=== PATIENT | female | born 1970 | race Caucasian/White ===

== ENCOUNTER 2020-01-18 00:12 | Outpatient (CLI) | payer OTHER, SELFPAY ==
[2020-01-18 17:26] LABS: SARS-CoV-2 RNA PCR Negative
== END 2020-01-18 00:13 | disposition home or self-care (01) ==
LOC: ANHCOVIDDT 00:12
PROVIDERS: Visit Provider Internal Medicine Gastroenterology
DX: Z01.818 Encounter for other preprocedural examination (principal); Z11.59 Encounter for screening for other viral diseases
CPT/HCPCS: 87635; C9803; U0003

== ENCOUNTER 2020-01-21 00:12 | Day surgery (SDC) | payer OTHER, SELFPAY ==
[2020-01-10 13:38] VITALS: BMI 28.3
[2020-01-21 06:50] VITALS: BP 125/76; PULSE 86; RESP 16; TEMP 36.4; O2SAT 98
[2020-01-21] MEDS: LACTATED RINGERS 1,000 ML 150 ML IV CONT (06:51)
--- NOTE | 2020-01-21 07:18 | PM.HPGS ---
History of Present Illness History of Present Illness Consent: Risks, benefits, and alternatives have been discussed and questions answered. Patient agrees to proceed with procedure. Chief complaint: Neoplasm Screening Narrative: Cely Corbin is a 50 year old W female who presents for her 1st screening colonoscopy. Patient is asymptomatic. Her father has a history of polyps. Patient is on no anticoagulation. [facility] Surgical History Surgical History (Updated 01/21/20 @ 07:21 by Grant Ortiz MD) History of bladder suspension procedure Status post section Status post tonsillectomy and adenoidectomy Status post total abdominal hysterectomy and bilateral salpingo-oophorectomy ([facility]-BSO) Meds Home Medications and Allergies Home Medications Medication Instructions Recorded Confirmed Type conjugated estrogens [Premarin] VAGINAL DAILY 01/10/20 History fluticasone propionate 1 spray INTRANASAL DAILY 01/10/20 01/10/20 History levothyroxine [Synthroid] 12.5 mcg PO DAILY 01/10/20 01/10/20 History levothyroxine [Synthroid] 150 mcg PO DAILY 01/10/20 01/10/20 History lifitegrast [Xiidra] 1 drp DAILY 01/10/20 01/10/20 History loratadine 10 mg PO DAILY 01/10/20 01/10/20 History kostahkcf-mqvym-qcs 1 tablet PO DAILY 01/10/20 01/10/20 History [Uribel] sertraline 25 mg PO DAILY 01/10/20 01/10/20 History chlorthalidone 25 mg PO DAILY 01/21/20 01/21/20 History Allergies Allergy/AdvReac Type Severity Reaction Status Date / Time quinine Allergy Intermediate Swelling Verified 01/21/20 06:47 simvastatin [From Zocor] AdvReac Mild Diarrhea Verified 01/21/20 06:47 Vital Signs Vital Signs - 24 hr 01/21/20 06:50 Temperature 36.4 C L Pulse Rate 86 Respiratory Rate 16 Blood Pressure 125/76 Pulse Oximetry 98 Exam Const: Orientation/consciousness: patient oriented x3 Resp: Auscultation: clear to auscultation bilaterally Cardio: Rate: regular rate Rhythm: regular rhythm Heart sounds: no murmurs GI: GI Palp: Yes Soft to palpation, No Tenderness to palpation present (GI), Yes No hepatosplenomegaly present and No Palpable mass present Auscultation: normal bowel sounds Neuro: General: patient oriented x3 and no focal motor deficits Extrem: General: no pedal edema Assessment and Plan Additional Plan 1st screening colonoscopy secondary family history of colon polyps in father
--- NOTE | 2020-01-21 07:28 | WPDANESEPPF ---
Anes - Initial Pre Proc Eval Procedure: Operation Date: 01/21/20 08:00 Proposed Procedures p Screening Colonoscopy - Grant Ortiz MD Date/Time: 01/21/20 07:28 Surgeon: Grant Ortiz MD Pre Op Diagnosis: Neoplasm Screening Patient Data Age: 50 Gender: F Height: 5 ft 5 in Weight: 78.1 kg Last Vital Signs Temp 97.5 F L 01/21/20 06:50 Pulse 86 01/21/20 06:50 Resp 16 01/21/20 06:50 BP 125/76 01/21/20 06:50 Pulse Ox 98 01/21/20 06:50 Allergies Allergy/AdvReac Type Severity Reaction Status Date / Time quinine Allergy Intermediate Swelling Verified 01/21/20 06:47 simvastatin [From Zocor] AdvReac Mild Diarrhea Verified 01/21/20 06:47 Home Medications Medication Instructions Recorded Confirmed Type conjugated estrogens [Premarin] VAGINAL DAILY 01/10/20 History fluticasone propionate 1 spray INTRANASAL DAILY 01/10/20 01/10/20 History levothyroxine [Synthroid] 12.5 mcg PO DAILY 01/10/20 01/10/20 History levothyroxine [Synthroid] 150 mcg PO DAILY 01/10/20 01/10/20 History lifitegrast [Xiidra] 1 drp DAILY 01/10/20 01/10/20 History loratadine 10 mg PO DAILY 01/10/20 01/10/20 History methen-sara-sSonjahzsy-seseg-zer 1 tablet PO DAILY 01/10/20 01/10/20 History [Uribel] sertraline 25 mg PO DAILY 01/10/20 01/10/20 History chlorthalidone 25 mg PO DAILY 01/21/20 01/21/20 History Patient hx anesthesia problems: none Family hx anesthesia problems: none PMFSH Past Medical History Medical History (Updated 01/21/20 @ 07:28 by Johnny Colby MD) Anxiety Arthritis Hypertension Surgical History Surgical History (Updated 01/21/20 @ 07:21 by Grant Ortiz MD) History of bladder suspension procedure Status post section Status post tonsillectomy and adenoidectomy Status post total abdominal hysterectomy and bilateral salpingo-oophorectomy ([facility]-BSO) Anes - Eval Final PreProcedure Day of Procedure 01/21/20 07:28 Patient weight: normal Heart: regular rate and rhythm Lungs: clear to auscultation Airway: Mallampati scale class II Neurological: alert and oriented Last oral intake: >/= 8 hours ASA classification: II Emergent: no Anesthetic plan: proceed Anesthesia type and monitoring: general GIVS and standard monitoring Informed Consent: The patient's anesthetic plan and its attendant risks and benefits were discussed with the patient/family/POA. Questions were solicited and answers provided to the satisfaction of the patient/family/POA.
[2020-01-21 08:38] VITALS: BP 103/66; PULSE 71; RESP 17; O2SAT 99
[2020-01-21 08:48] VITALS: BP 106/70; PULSE 60; RESP 17; O2SAT 100
[2020-01-21 08:58] VITALS: BP 117/76; PULSE 63; RESP 20; O2SAT 100
== END 2020-01-21 09:09 | disposition home or self-care (01) ==
PROVIDERS: Visit Provider Internal Medicine Gastroenterology
PROC: 0DJD8ZZ Inspection of Lower Intestinal Tract, Via Natural or Artificial Opening Endoscopic (ICD-10-PCS; CPT 45378; principal; 2020-01-21 08:00)
DX: Z12.11 Encounter for screening for malignant neoplasm of colon (principal); I10 Essential (primary) hypertension; F41.9 Anxiety disorder, unspecified
CPT/HCPCS: 45378; J2001; J2704; J7120

== ENCOUNTER 2020-01-31 14:29 | Outpatient (CLI) | payer OTHER, SELFPAY ==
--- NOTE | ~2020-01-31 | MM_ITS ---
EXAMINATION: MM screening viv BI w gillian HISTORY: Screening mammogram TECHNIQUE: Craniocaudal and mediolateral oblique 3-D tomosynthesis images were obtained and synthetic 2-D images were generated. CAD analysis was submitted and interpreted. COMPARISON: No prior mammogram is available for comparison at this institution. BREAST PARENCHYMAL COMPOSITION: There are scattered areas of fibroglandular density. FINDINGS: There is no evidence of suspicious mass, calcification, or architectural distortion to sugg est malignancy in either breast. There has been no suspicious interval change. IMPRESSION: 1. No mammographic evidence of malignancy. 2. Recommend routine screening mammography in one year. BI-RADS Category 1: Negative Reviewed, dictated and finalized at location A.
== END 2020-01-31 14:30 | disposition home or self-care (01) ==
DX: Z12.31 Encounter for screening mammogram for malignant neoplasm of breast (principal)
CPT/HCPCS: 77063; 77067

== ENCOUNTER 2020-07-15 18:58 | Emergency (ER) | payer OTHER, SELFPAY ==
[2020-07-15 19:06] VITALS: BP 160/82; PULSE 102; RESP 18; TEMP 37; O2SAT 100
--- NOTE | 2020-07-15 19:16 | ED.GENADULT ---
HPI - General Adult General Chief complaint: Animal Bite Stated complaint: animal bite Source: patient Mode of arrival: ambulatory Limitations: no limitations History of Present Illness HPI narrative: Patient presents for evaluation of dog bite to left arm. She indicates she has two dogs at home. This evening, just prior to arrival, her dogs got physically aggressive with one another. She attempted to intervene and one of the dogs bit her left forearm. Both dogs are up-to-date on vaccinations. Patient is unsure of the date of her last tetanus. She is not diabetic. She is right-hand dominant. She reports moderate pain in the affected area without descriptive quality or numerical rating. No additional complaints or concerns. Related Data Home Medications Medication Instructions Recorded Confirmed Premarin VAGINAL DAILY 01/10/20 Uribel 1 tablet PO DAILY 01/10/20 01/10/20 Xiidra 1 drp DAILY 01/10/20 07/15/20 fluticasone propionate 1 spray INTRANASAL DAILY 01/10/20 07/15/20 levothyroxine [Synthroid] 12.5 mcg PO DAILY 01/10/20 01/10/20 levothyroxine [Synthroid] 150 mcg PO DAILY 01/10/20 01/10/20 loratadine 10 mg PO DAILY 01/10/20 07/15/20 sertraline 25 mg PO DAILY 01/10/20 07/15/20 chlorthalidone 25 mg PO DAILY 01/21/20 07/15/20 Allergies Allergy/AdvReac Type Severity Reaction Status Date / Time quinine Allergy Intermediate Swelling Verified 07/15/20 19:12 simvastatin [From Zocor] AdvReac Mild Diarrhea Verified 07/15/20 19:12 Review of Systems Review of Systems: Narrative: CONSTITUTIONAL: Denies fever, chills, or sweats. EYES: Denies visual changes, redness, or discharge. ENT: Denies rhinorrhea, congestion, sore throat, or otalgia. CARDIOVASCULAR: Denies chest pain, palpitations, or edema. RESPIRATORY: Denies cough or dyspnea. GASTROINTESTINAL: Denies abdominal pain, nausea, vomiting, or diarrhea. GENITOURINARY: Denies dysuria or hematuria. SKIN: Denies rash or itching. Reports dog bite to the left arm MUSCULOSKELETAL: Denies back pain, joint pain. Reports pain in the left forearm NEUROLOGIC: Denies headache, numbness, dizziness, or weakness. PSYCHIATRIC: Denies anxiety or depression. [facility] Past Medical History Medical History Anxiety Arthritis Hypertension Thyroid disease Surgical History Surgical History History of bladder suspension procedure Status post section Status post tonsillectomy and adenoidectomy Status post total abdominal hysterectomy and bilateral salpingo-oophorectomy ([facility]-BSO) Family History Family History Father Coronary artery disease Mother Coronary artery disease Social History Social History (Updated 07/15/20 @ 19:20 by ESTELA Burgess, ) Smoking status: Never smoker Substance use: never Living arrangements: with family Gender identity (if verbalized by the patient): Female Sexual Orientation (if Verbalized by the Patient): Straight or Heterosexual Exam Narrative: Exam Narrative: GENERAL: Well-appearing, well-nourished, and in no acute distress. HEAD: Normocephalic, atraumatic. EYES: PERRLA and EOMI. ENT: Nares clear, no rhinorrhea or epistaxis. Mucous membranes moist. Oropharynx without tonsillar hypertrophy exudate or other lesions. Bilateral TMs [place] nonbulging NECK: Supple. No adenopathy or masses. No carotid bruits or JVD CHEST: Clear to auscultation. No respiratory distress. No wheezes rales or rhonchi HEART: Regular rate and rhythm. No murmur heard. Normal peripheral pulses. ABDOMEN: Soft, nontender, nondistended, normal active bowel sounds. EXTREMITIES: Normal range of motion. No edema. SKIN: Warm, dry, no rash. (2) puncture [place] at approximately 3 mm in size to the left forearm with dried sanguinous drainage noted NEURO: No focal deficits. Alert an
[2020-07-15] MEDS: TETANUS,DIPHTHERIA,AC PERTUSSIS ADULT (0.5 ML) BOOSTRIX IM (19:21)
== END 2020-07-15 19:32 | disposition home or self-care (01) ==
PROVIDERS: Emergency Provider Nurse Practitioner
DX: S51.832A Puncture wound without foreign body of left forearm, initial encounter (principal); W54.0XXA Bitten by dog, initial encounter; Z23 Encounter for immunization; F41.9 Anxiety disorder, unspecified; M19.90 Unspecified osteoarthritis, unspecified site; I10 Essential (primary) hypertension; E06.3 Autoimmune thyroiditis; E03.9 Hypothyroidism, unspecified
CPT/HCPCS: 90471; 90715; 99213; G0463

== ENCOUNTER 2020-09-29 13:44 | Outpatient (CLI) | payer OTHER, SELFPAY ==
--- NOTE | ~2020-09-29 | MM_ITS ---
EXAMINATION: MM diagnostic viv RT w gillian HISTORY: Deep breast pain TECHNIQUE: ML, MLO and craniocaudal 3-D tomosynthesis images of right breast were performed and synth etic 2-D images were generated. CAD analysis was submitted and interpreted. COMPARISON: 01/31/2020 bilateral digital screening mammogram BREAST PARENCHYMAL COMPOSITION: There are scattered areas of fibroglandular density. FINDINGS: No suspicious mass or architectural distortion, malignant calcification, skin thickening or retraction or significant new or developing density is detected. IMPRESSION: 1. No mammographic evidence of malignancy 2. Routine annual mammographic screening is recommended. BI-RADS Category 1: Negative Reviewed, dictated and finalized at location A. [place] [employer]
== END 2020-09-29 13:45 | disposition home or self-care (01) ==
LOC: ANHIMG 13:48
DX: N64.4 Mastodynia (principal)
CPT/HCPCS: 77061; 77065; G0279

== ENCOUNTER 2021-02-02 14:09 | Outpatient (CLI) | payer OTHER, SELFPAY ==
--- NOTE | ~2021-02-02 | MM_ITS ---
EXAMINATION: MM screening [facility] BI w gillian HISTORY: Screening mammogram TECHNIQUE: Craniocaudal and mediolateral oblique 3-D tomosynthesis images were obtained and synthetic 2-D images were generated. CAD analysis was submitted and interpreted. COMPARISON: 09/29/2020, 01/31/2020 BREAST PARENCHYMAL COMPOSITION: There are scattered areas of fibroglandular density. FINDINGS: There is no evidence of suspicious mass, calcification, or architectural distortion to sugg est malignancy in either breast. There has been no suspicious interval change. IMPRESSION: 1. No mammographic evidence of malignancy. 2. Recommend routine screening mammography in one year. BI-RADS Category 1: Negative Reviewed, dictated and finalized at location A.
== END 2021-02-02 14:10 | disposition home or self-care (01) ==
LOC: ANHIMG 14:12
DX: Z12.31 Encounter for screening mammogram for malignant neoplasm of breast (principal)
CPT/HCPCS: 77063; 77067

== ENCOUNTER 2022-07-07 14:08 | Emergency (ER) | payer OTHER, SELFPAY ==
--- NOTE | ~2022-07-07 | XR_ITS ---
XR chest 2V DATE: 07/07/2022 15:02 INDICATION: Cough for 2 weeks. Shortness of breath. TECHNIQUE: 2 views COMPARISON: None FINDINGS: Normal heart size. No hilar or mediastinal enlargement. No pulmonary infiltrate or consolid ation, pleural effusion or pulmonary vascular congestion or pneumothorax. No hilar or mediastinal enl argement. Mild degenerative spurring of the thoracic spine. IMPRESSION: No active cardiopulmonary disease Reviewed, dictated and finalized at location A. H PUNCHER
[2022-07-07 14:16] VITALS: BP 126/77; PULSE 95; RESP 18; TEMP 36.4; O2SAT 97
--- NOTE | 2022-07-07 14:53 | ED.URI ---
HPI - URI/Sore Throat General Chief Complaint: Upper Respiratory Infection Stated Complaint: Cough Time Seen by Provider: 07/07/22 14:47 Source: patient Mode of arrival: ambulatory Limitations: no limitations History of Present Illness HPI Narrative: Patient presents today with a 2 week history of dry cough, headache, shortness of breath. Denies fever. She currently rates her pain 7/10 head has been taking cold medication without relief. Denies any history of asthma or COPD. She does have CHF for which she takes diuretics. States she is scheduled for pulmonary function testing in August. Related Data Home Medications Medication Instructions Recorded Confirmed levothyroxine 150 mcg tablet 150 mcg PO DAILY 01/10/20 07/07/22 (Synthroid) loratadine 10 mg tablet 10 mg PO DAILY 01/10/20 07/07/22 methenam 118 mg-m.blue 10 1 tablet PO DAILY 01/10/20 07/07/22 mg-s.phos 40.8 mg-p.salic 36 mg-hyos capsule (Uribel) aspirin 81 mg chewable tablet 81 mg PO DAILY 07/07/22 07/07/22 estradiol 1 mg tablet 1 mg DAILY 07/07/22 07/07/22 gabapentin 100 mg capsule 100 mg PO BID 07/07/22 07/07/22 (Neurontin) hydrochlorothiazide 25 mg tablet 25 mg DAILY 07/07/22 07/07/22 metoprolol succinate 50 mg 50 mg PO BID 07/07/22 07/07/22 tablet,extended release 24 hr naproxen 500 mg tablet 500 mg PO BID 07/07/22 07/07/22 ranolazine 1,000 mg 1,000 mg PO Q12H 07/07/22 07/07/22 tablet,extended release,12 hr rosuvastatin 20 mg tablet 20 mg PO DAILY 07/07/22 07/07/22 spironolactone 25 mg tablet 25 mg DAILY 07/07/22 07/07/22 Allergies Allergy/AdvReac Type Severity Reaction Status Date / Time quinine Allergy Intermediate Swelling Verified 07/07/22 14:27 simvastatin [From Zocor] AdvReac Mild Diarrhea Verified 07/07/22 14:27 Review of Systems Review of Systems: CONSTITUTIONAL: Denies body aches, fever, chills, or sweats. EYES: Denies visual changes, redness, or discharge. ENT: Denies rhinorrhea, congestion, sore throat, or otalgia. CARDIOVASCULAR: Denies chest pain, palpitations, or edema. RESPIRATORY: + cough, shortness of breath GASTROINTESTINAL: Denies abdominal pain, nausea, vomiting, or diarrhea. GENITOURINARY: Denies dysuria or hematuria. SKIN: Denies rash, itching, or wounds. MUSCULOSKELETAL: Denies back pain, joint pain, or myalgia. NEUROLOGIC: Denies numbness, tingling, or weakness.+ headache PSYCH: Denies depression or anxiety. [facility] Past Medical History Medical History Anxiety Arthritis Hypertension Thyroid disease Surgical History Surgical History History of bladder suspension procedure Status post section Status post tonsillectomy and adenoidectomy Status post total abdominal hysterectomy and bilateral salpingo-oophorectomy ([facility]-BSO) Family History Family History Father Coronary artery disease Mother Coronary artery disease Social History Social History Smoking status: Never smoker Substance use: never Gender identity (if verbalized by the patient): Female Sexual Orientation (if Verbalized by the Patient): Straight or Heterosexual Comments At time of signature, I have reviewed and agree with nursing past medical, surgical, social and family history unless otherwise noted. Please see nursing chart for further information. There is no relevant family history pertinent to the presenting complaint Exam Narrative: GENERAL: Ill-appearing, well-nourished, and in no acute distress. HEAD: Normocephalic, atraumatic. EYES: EOMI. No redness or drainage. Conjunctivae normal. ENT: Mucous membranes pink and moist. Nares clear. No rhinorrhea. TMs normal bilaterally. Throat normal. Uvula midline. NECK: Normal AROM. Supple. No lymphadenopathy. CHEST: No respi
== END 2022-07-07 15:39 | disposition home or self-care (01) ==
PROVIDERS: Emergency Provider Nurse Practitioner
DX: J40 Bronchitis, not specified as acute or chronic (principal); Z20.822 Contact with and (suspected) exposure to COVID-19; M19.90 Unspecified osteoarthritis, unspecified site; I10 Essential (primary) hypertension; E03.9 Hypothyroidism, unspecified; E06.3 Autoimmune thyroiditis; Z79.82 Long term (current) use of aspirin
CPT/HCPCS: 71046; 87426; 99213; C9803; G0463

== ENCOUNTER 2024-08-01 09:58 | Emergency (ER) | payer OTHER, SELFPAY ==
--- NOTE | ~2024-08-01 | XR_ITS ---
XR chest 2V Ordering provider: Primo Vuong MD History: 54 years Female with . cough fever . Comparison: None. FINDINGS: MEDIASTINUM: The cardiac silhouette is not enlarged. LUNGS: No infiltrates, effusions or pneumothorax. OTHER: No free air under the diaphragm. IMPRESSION: No acute cardiopulmonary pathology. Reviewed, dictated and finalized at location A. BOT[employer]IST ASSOCIATE
[2024-08-01 10:10] VITALS: BP 124/68; PULSE 78; RESP 16; TEMP 36.7; O2SAT 100
--- NOTE | 2024-08-01 10:32 | ED_ITS ---
HPI - URI/Sore Throat General Chief Complaint: Upper Respiratory Infection Stated Complaint: weakness Time Seen by Provider: 08/01/24 10:28 Source: patient Mode of arrival: ambulatory Limitations: no limitations History of Present Illness HPI Narrative: 54 YEARS OLD WHITE FEMALE CAME TO THE ED WITH GENERALIZED BODY ACHES, HEADACHE, PRODUCTIVE COUGH, FEVER STARTED 2 DAYS AGO Related Data Home Medications ?Medication ?Instructions ?Recorded ?Confirmed ?Last Taken ?Type levothyroxine 150 mcg tablet 150 mcg PO DAILY 01/10/20 07/07/22 01/21/20 05:00 History (Synthroid) loratadine 10 mg tablet 10 mg PO DAILY 01/10/20 07/07/22 Unknown History methenam 118 mg-m.blue 10 1 tablet PO DAILY 01/10/20 07/07/22 Unknown History mg-s.phos 40.8 mg-p.salic 36 mg-hyos capsule (Uribel) aspirin 81 mg chewable tablet 81 mg PO DAILY 07/07/22 07/07/22 Unknown History estradiol 1 mg tablet 1 mg DAILY 07/07/22 07/07/22 Unknown History gabapentin 100 mg capsule 100 mg PO BID 07/07/22 07/07/22 Unknown History (Neurontin) hydrochlorothiazide 25 mg tablet 25 mg DAILY 07/07/22 07/07/22 Unknown History metoprolol succinate 50 mg 50 mg PO BID 07/07/22 07/07/22 Unknown History tablet,extended release 24 hr naproxen 500 mg tablet 500 mg PO BID 07/07/22 07/07/22 Unknown History ranolazine 1,000 mg 1,000 mg PO Q12H 07/07/22 07/07/22 Unknown History tablet,extended release,12 hr rosuvastatin 20 mg tablet 20 mg PO DAILY 07/07/22 07/07/22 Unknown History spironolactone 25 mg tablet 25 mg DAILY 07/07/22 07/07/22 Unknown History Allergies Allergy/AdvReac Type Severity Reaction Status Date / Time quinine Allergy Intermediate Swelling Verified 07/07/22 14:27 simvastatin (From Zocor) AdvReac Mild Diarrhea Verified 07/07/22 14:27 Review of Systems Review of Systems: All systems reviewed & are unremarkable except as noted in HPI and below PMFSH Past Medical History Medical History Thyroid disease Anxiety Arthritis Hypertension Surgical History Surgical History History of bladder suspension procedure Status post tonsillectomy and adenoidectomy Status post total abdominal hysterectomy and bilateral salpingo-oophorectomy ([facility]-BSO) Status post section Family History Family History Father Coronary artery disease Mother Coronary artery disease Social History Social History Smoking status: Never smoker Substance use: never Living arrangements: with family Gender identity (if verbalized by the patient): Female Sexual Orientation (if Verbalized by the Patient): Straight or Heterosexual Exam Narrative: GENERAL APPEARANCE: WELL-DEVELOPED, WELL-NOURISHED, LOOKING ILL SKIN: NORMAL COLOR HEAD: NORMOCEPHALIC, NONTRAUMATIC EYES: CLEAR CONJUNCTIVA ENT: OROPHARYNX NORMAL, EARS NORMAL, NOSE NORMAL NECK: SUPPLE, NONTENDER CHEST AND RESPIRATORY: AIRWAY PATENT, NO RESPIRATORY DISTRESS, NO ACCESSORY M USCLE USE HEART: REGULAR RATE/RHYTHM ABDOMEN: SOFT, NONTENDER, NO ORGANOMEGALY, QUIET BOWEL SOUNDS MUSCULOSKELETAL: NORMAL RANGE OF MOTION, NONTENDER BACK NEUROLOGIC: ALERT AND ORIENTED ?3, PIPE CUTTER IS NORMAL TESTED, NO GROSS MOTOR DEFICIT Course Vital Signs Vital signs: Vital Signs Temperature 36.7 C 08/01/24 10:10 Pulse Rate 78 08/01/24 10:10 Respiratory Rate 16 08/01/24 10:10 Blood Pressure 124/68 08/01/24 10:10 Pulse Oximetry 100 08/01/24 10:10 Oxygen Delivery Room Air 08/01/24 10:10 Temperature 36.7 C 08/01/24 10:10 Pulse Rate 78 08/01/24 10:10 Respiratory Rate 16 08/01/24 10:10 Blood Pressure 124/68 08/01/24 10:10 Pulse Oximetry 100 08/01/24 10:10 Oxygen Delivery Room Air 08/01/24 10:12 MDM - URI/Sore Throat MDM Narrative Medical decision making narrative: PATIENT PRESENTS WITH UPPER RESPIRATORY VIRAL INFECTION SYMPTOMS RESPIRATORY PANEL TESTED THE DAY CAME BACK POSITIVE FOR INFLUENZA A DISCHARGED ON TAMIFLU Differential Diagnosis Differential diagnosis: Likely upper respiratory infection and other (UPPER RESPIRATORY VIRAL INFECTION) Medical Records Attestation: I reviewed the patient's medical records. Lab Data Labs: Lab Results 08/01/24 Range/Units 10:06 Influenza A (RT-PCR) Positive A (Negative) Influenza B (RT-PCR) Negative (Negative) RSV (RT-PCR) Negative (Negative) SARS-CoV-2 RNA (RT-PCR) Negative (Negative) Imaging Data Radiologist's impression: Impressions Chest X-Ray 08/01/24 11:19 IMPRESSION: No acute cardiopulmonary pathology. Critical Care Time Critical Care Time Critical Care Time: No Discharge Plan Discharge Clinical Impression: Influenza A Patient Disposition: Home, Self-Care Condition: Stable Instructions: Influenza (ED) Additional Instructions: RETURN IF SYMPTOMS ARE WORSENING , CALL YOUR FAMILY PHYSICIAN FOR APPOINTMENT, TAKE TYLENOL, IBUPROFEN NEEDED FOR ACHES AND PAIN, CONTINUE HOME MEDICATIONS. Patient Language: Polish Prescriptions: New oseltamivir [Tamiflu] 75 mg capsule 75 mg PO BID Qty: 10 0RF No Action metoprolol succinate 50 mg Tablet Extended Release 24 Hr 50 mg PO BID spironolactone 25 mg tablet 25 mg DAILY estradiol 1 mg tablet 1 mg DAILY aspirin 81 mg Tablet,Chewable 81 mg PO DAILY hydrochlorothiazide 25 mg tablet 25 mg DAILY gabapentin [Neurontin] 100 mg Capsule 100 mg PO BID naproxen 500 mg Tablet 500 mg PO BID rosuvastatin 20 mg Tablet 20 mg PO DAILY ranolazine 1,000 mg Tablet Extended Release 12 Hr 1,000 mg PO Q12H azithromycin 250 mg tablet 250 mg PO DAILY Qty: 6 0RF Rx Instructions: take 500 mg today (day 1), then 250 mg daily on days 2-5. prednisone 20 mg tablet 40 mg PO DAILY 5 Days Qty: 10 0RF albuterol sulfate [ProAir HFA] 90 mcg/actuation HFA aerosol inhaler 2 puff INHALATION Q4-6H PRN (Reason: shortness of breath or wheezing) Qty: 18 0RF levothyroxine [Synthroid] 150 mcg tablet 150 mcg PO DAILY loratadine 10 mg tablet 10 mg PO DAILY Uribel 118-10-40.8-36 mg capsule 1 tablet PO DAILY Follow-up/Referrals: [place], [Primary Care Provider] -
[2024-08-01 11:05] LABS: Influenza A QL RT-PCR Positive (Negative); Influenza B QL RT-PCR Negative (Negative); RSV RNA, RT-PCR Negative (Negative); SARS-CoV-2 RNA PCR Negative (Negative)
[2024-08-01] MEDS: ACETAMINOPHEN 325 MG TABLET 650 MG PO (11:11)
[2024-08-01] MEDS: IBUPROFEN 600 MG TABLET PO (11:12)
== END 2024-08-01 12:00 | disposition home or self-care (01) ==
PROVIDERS: Emergency Provider Emergency Medicine
DX: J10.1 Influenza due to other identified influenza virus with other respiratory manifestations (principal); Z20.822 Contact with and (suspected) exposure to COVID-19; I10 Essential (primary) hypertension; E07.9 Disorder of thyroid, unspecified; M19.90 Unspecified osteoarthritis, unspecified site; Z90.710 Acquired absence of both cervix and uterus; Z90.79 Acquired absence of other genital organ(s); Z90.722 Acquired absence of ovaries, bilateral; Z79.82 Long term (current) use of aspirin; Z79.899 Other long term (current) drug therapy
CPT/HCPCS: 71046; 87637; 99283; A9270